=== PATIENT | male | born 1985 | race Caucasian/White ===

== ENCOUNTER 2021-04-21 16:08 | Observation (INO) ==
[2021-04-21 16:38] LABS: ABS Basophils 0.1 10^3/ul (0-0.2); ABS Eosinophils 0.2 10^3/ul (0-0.6); ABS Lymphocytes 2.7 10^3/ul (1.0-4.8); ABS Monocytes 0.4 10^3/ul (0-0.8); ABS Neutrophils 3.8 10^3/ul (1.5-7.7); Eosinophil % 2.2 %; Hematocrit 49 % (42-52); Hemoglobin 17.3 g/dL (14.0-18.0); Lymphocyte % 37.8 %; Mean Corpuscular HGB Conc 36 g/dL (31-36); Mean Corpuscular Hemoglobin 33 pg (27-31); Mean Corpuscular Volume 91 fL (80-94); Mean Platelet Volume 9.2 fL (7.4-10.4); Nucleated Red Blood Cells % 0.1; Platelet Count 232 10^3/uL (150-450); Red Blood Count 5.32 10^6 /uL (4.18-5.48); Red Cell Distribution Width 13 % (10-15); White Blood Count 7.1 10^3/uL (3.5-10.8)
[2021-04-21 16:49] LABS: INR 1.05 (0.86-1.15)
[2021-04-21 16:58] LABS: Albumin 4.9 g/dL (3.2-5.2); Albumin/Globulin Ratio 1.6 (1-3); Calcium 10.1 mg/dL (8.6-10.3); Potassium 4.3 mmol/L (3.5-5.0); Total Bilirubin 0.8 mg/dL (0.2-1.0); Total Protein 7.9 g/dL (6.4-8.9)
[2021-04-21 17:00] LABS: Troponin I 0.01 ng/mL (<0.03)
[2021-04-21 22:10] LABS: Troponin I 0.04 ng/mL (<0.03)
[2021-04-22 00:19] LABS: HDL Cholesterol 51.6 mg/dL
[2021-04-22] MEDS ORDERED: Nitro 2% OINT (Nitroglycerin) 1 INCH/PAK TOPICAL ONE (03:10)
[2021-04-22 04:39] LABS: Rapid COVID-19 Molecular Undetected (Undetected)
[2021-04-22] MEDS ORDERED: Al Hydrox/Mg Hydrox/Simet LIQ 30 ML UDC PO ONE (13:08)
[2021-04-22] MEDS ORDERED: Morphine 2 MG/ML SYRINGE IV PRN (13:09)
[2021-04-23 05:16] LABS: ABS Basophils 0.1 10^3/ul (0-0.2); ABS Eosinophils 0.2 10^3/ul (0-0.6); ABS Lymphocytes 3.6 10^3/ul (1.0-4.8); ABS Monocytes 0.6 10^3/ul (0-0.8); ABS Neutrophils 2.9 10^3/ul (1.5-7.7); Eosinophil % 2.4 %; Hematocrit 45 % (42-52); Hemoglobin 15.7 g/dL (14.0-18.0); Lymphocyte % 49.6 %; Mean Corpuscular HGB Conc 35 g/dL (31-36); Mean Corpuscular Hemoglobin 32 pg (27-31); Mean Corpuscular Volume 92 fL (80-94); Platelet Count 208 10^3/uL (150-450); Red Blood Count 4.88 10^6 /uL (4.18-5.48); Red Cell Distribution Width 13 % (10-15); White Blood Count 7.3 10^3/uL (3.5-10.8)
[2021-04-23 05:35] LABS: Calcium 9.5 mg/dL (8.6-10.3); Potassium 3.9 mmol/L (3.5-5.0)
[2021-04-23] MEDS ORDERED: Aspirin EC 81 mg TAB.EC (enteric coated) PO SCH (09:00)
[2021-04-23 13:08] VITALS: BP 126/92
== END 2021-04-23 15:30 | disposition home or self-care (01) ==
LOC: ED 16:08 → MEDTELE 16:08 → SUATTDRO 04-22 03:10
PROVIDERS: ADMIT Internal Medicine; ATTEND Internal Medicine